=== PATIENT | female | born 1960 | race Caucasian/White ===

== ENCOUNTER 2018-02-14 18:02 | Emergency (ER) | payer OTHER ==
[~2018-02-14] VITALS: Ht 154.9 cm; Wt 46.3 kg
[2018-02-14 18:20] VITALS: BP 155/82
[2018-02-14] MEDS ORDERED: KEFLEX500 M1 PO (18:29)
--- NOTE | 2018-02-14 18:29 | ED GENERAL ADULT ---
History of Present Illness General Chief Complaint: Foot or Ankle Injury Stated Complaint: PT RT FOOT IS TINGLING Source: patient Exam Limitations: no limitations Vital Signs & Intake/Output Vital Signs & Intake/Output Vital Signs Date Time Temp Pulse Resp B/P B/P Pulse O2 O2 Flow FiO2 Mean Ox Delivery Rate 02/14 1832 97 02/14 1820 98.0 81 18 155/82 98 Room Air Allergies Coded Allergies: Sulfa (Sulfonamide Antibiotics) (ABD PAIN 02/14/18) Reconcile Medications Cephalexin (Keflex) 500 MG CAPSULE 1 CAP PO TID UTI Triage Note: PT STATES SHE WENT TO WALK AND PRESCRIBED CIPRO AND PYRIDIUM FOR HER UTI. PT STATES SHE IS HAVING TINGLING IN HER RIGHT FOOT OFF AND ON TODAY. PT CALLED THE WALK IN AND WAS TOLD TO COME TO ED TO MAKE SURE SHE WASN'T HAVING A STROKE. PT DOES NOT HAVE SLURRED SPEECH. NO WEAKNESS OR FACIAL DROOP NOTED. Triage Nurses Notes Reviewed? yes Onset: Abrupt Duration: day(s): (1), gone now, intermittent Timing: multiple episodes today Injury Environment: home Severity: mild, moderate No Modifying Factors: none LMP (ages 10-50): unknown : No Patient currently breastfeeds: No HPI: 57-year-old female with no past medical history of present for evaluation of intermittent tingling in her right foot. Patient states that she has had these symptoms in the past intermittently however today she had multiple episodes. The episodes lasted for a few minutes before going away completely. She reports having 3 or 4 episodes today. Nothing seems to bring on the symptoms or make them better or worse. She does with that she was seen at an urgent care 2 days ago diagnosed with UTI and was started on Cipro and Pyridium. Patient is concerned that she may be having side effects of the medication so she called the urgent care to try and get A new antibiotic however she was referred here for further evaluation. Patient denies any weakness, trauma, swelling, chest pain, shortness breath, slurred speech, changes in vision or any other associated symptoms. No other medications. (Oliver ABDULLAHI,David) Past History Travel History Traveled to [place] past 21 day No Medical History Any Pertinent Medical History? see below for history Surgical History Surgical History: non-contributory Psychosocial History What is your primary language Ivorian Tobacco Use: Never used ETOH Use: occasional use Illicit Drug Use: marijuana Family History Hx Contributory? No (David Soto) Review of Systems Review of Systems Constitutional: Reports: no symptoms. EENTM: Reports: no symptoms. Respiratory: Reports: no symptoms. Cardiovascular: Reports: no symptoms. GI: Reports: no symptoms. Genitourinary: Reports: no symptoms. Musculoskeletal: Reports: no symptoms. Skin: Reports: no symptoms. Neurological/Psychological: Reports: numbness, paresthesia, tingling. Hematologic/Endocrine: Reports: no symptoms. Immunologic/Allergic: Reports: no symptoms. All Other Systems: Reviewed and Negative (David Soto) Physical Exam Physical Exam General Appearance: well developed/nourished, no apparent distress, alert, awake Head: atraumatic, normal appearance Eyes: Bilateral: normal appearance, PERRL, EOMI. Ears, Nose, Throat: hearing grossly normal Neck: normal inspection, supple, full range of motion Respiratory: normal breath sounds, chest non-tender, no respiratory distress, lungs clear Cardiovascular: regular rate/rhythm, normal peripheral pulses Peripheral Pulses: 2+ radial (R), 2+ radial (L) Gastrointestinal: normal bowel sounds, soft, non-tender, no organomegaly Back: normal inspection, normal range of motion, no vertebral tenderness Extremities: normal inspection, normal range of motion, no edema, THERE IS NO SWELLING OR ERYTHEMA OF THE RIGHT FOOT. pERIPHERAL PULSES INTACT PATIENT IS ABLE TO WALK AND BEAR WEIGHT. nO CALF SWELLING OR PAIN. 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 No CVA/TIA Diagnosis: No Sepsis Present: No Sepsis Focused Exam Completed? No (David Soto) Progress Differential Diagnoses I considered the following diagnoses in my evaluation of the patient: [ Medication side effect, neuropathy, electrolyte abnormality, peripheral vascular disease, tendinitis,] Plan of Care: Patient seen and evaluated. Currently she is asymptomatic. Examination of the foot is within normal limits. She is neurologically intact. No suspicion for CVA at this time. Patient has no risk factors she is completely neurologically intact. She has had these symptoms in the past but never multiple episodes Today. She is requesting a change in her antibiotic and she is concerned may be related. She was instructed to discontinue Cipro and start cephalexin. Follow- up with urine culture. Advised patient she should have bloodwork for further evaluation. Patient claims at this time. She will follow with her primary care doctor she understands the risks alert and oriented 3. Discussed return precautions in detail. Patient agrees the plan. Initial ED EKG: none (David Soto) Departure Departure Disposition: HOME OR SELF CARE Condition: Stable Clinical Impression Primary Impression: Medication side effect Referrals: Veronica Hanks MD (PCP/Family) Additional Instructions: DISCONTINUE CIPRO AND START KEFLEX FOR THE FULL COURSE. MONIOTR YOUR SYMPTOMS CLOSELY. IF YOU HAVE PERISITEN SYMPTOMS, ONE SIDED WEAKNESS, SLURRED SPEECH OR ANY OTHER CONCERNS RETURN IMMEIDATLY FOLLOW UP WITH YOUR PRIMARY CARE DOCOTR FOR A RECHECK IN A FEW DAYS. ALSO FOLLOW UP ON THE URINE CULTURE. Departure Forms: Customer Survey General Discharge Information Prescriptions: Current Visit Scripts Cephalexin (Keflex) 1 CAP PO TID #21 CAP (David Soto) PA/TRUCKLOAD CHECKER Co-Sign Statement Statement: ED Attending supervision documentation- I saw and evaluated the patient. I have also reviewed all the pertinent lab results and diagnostic results. I agree with the findings and the plan of care as documented in the PA's/TRUCKLOAD CHECKER's documentation. x I have reviewed the ED Record and agree with the PA's/TRUCKLOAD CHECKER's documentation. [] Additions or exceptions (if any) to the PAs/TRUCKLOAD CHECKER's note and plan are summarized below: [] (Yvonne ZUNIGA,Hermes) Critical Care Note Critical Care Note Critical Care Time: non-applicable (David Soto)
== END 2018-02-14 18:32 ==
LOC: ERH 18:02
DX: T36.8X5A Adverse effect of other systemic antibiotics, initial encounter (principal)